=== PATIENT | female | born 1960 | race Caucasian/White ===

== ENCOUNTER 2019-03-28 06:06 | Day surgery (SDC) | payer OTHER ==
[~2019-03-28] VITALS: Ht 162.6 cm; Wt 69.1 kg
[2019-03-28 07:20] VITALS: BP 149/93
== END 2019-03-28 10:35 | disposition home or self-care (01) ==
LOC: OUT 06:06 → MERGE 08:30 → OUT 10:35
PROVIDERS: ATTEND Surgery
DX: E04.1 Nontoxic single thyroid nodule (principal); I10 Essential (primary) hypertension; E03.9 Hypothyroidism, unspecified; Z79.890 Hormone replacement therapy; Z79.899 Other long term (current) drug therapy; Z82.49 Family history of ischemic heart disease and other diseases of the circulatory system
CPT/HCPCS: 60220; 88307; C1760; J0330; J1100; J2250; J2405; J2704; J3010; J7120